=== PATIENT | male | born 1990 | race Caucasian/White ===

== ENCOUNTER 2021-06-01 22:30 | Inpatient (IN) | payer SELFPAY ==
[2021-06-02 02:20] VITALS: BMI 35.7
[2021-06-02] MEDS ORDERED: Ondansetron ODT 4 MG TAB PO PRN (02:25)
[2021-06-02] MEDS ORDERED: Ondansetron PF 4 MG/2 ML Vial IVP PRN (02:25)
[2021-06-02] MEDS ORDERED: Sodium Chloride 0.9% 1,000 ML IV SCH (03:30)
[2021-06-02 05:50] LABS: Hemoglobin 13.6 g/dL (14.0-18.0); Mean Corpuscular HGB CONC 33.1 g/dL (32.0-36.0); Mean Corpuscular Hemoglobin 31.1 pg (27.0-31.0); Mean Platelet Volume 7.6 fL (7.4-10.4); Platelet Count 198 thou/uL (130-400); RBC Distribution Width 12.1 % (11.5-14.5); Red Blood Cell (RBC) Count 4.36 mill/uL (4.70-6.10); White Blood Cell (WBC) Count 9.9 thou/uL (4.8-10.8)
[2021-06-02] MEDS: metroNIDAZOLE 500 MG in Premix Bag 1 BAG IVPB SCH ×3 (06:00→20:22)
[2021-06-02] MEDS: Cefepime 2 GM in Sodium Chloride 0.9% 100 ML IVPB SCH ×2 (06:00→16:39)
[2021-06-02] MEDS: HYDROcodone/Acetaminophen 5/325 mg Tablet PO PRN ×2 (06:06→22:13)
[2021-06-02 06:22] LABS: Band 21 % (5-11); Eosinophils 1 % (0-10); Lymphocytes 20 % (21-51); MDiff Complete? YES; Monocytes 6 % (0-10); Neutrophil 52 % (42-75)
[2021-06-02] MEDS: Acetaminophen 325 MG TAB PO PRN ×2 (07:32→20:16)
[2021-06-02] MEDS: Enoxaparin Sodium 40 MG/0.4 ML SYRINGE SC SCH (07:33)
[2021-06-02] MEDS ORDERED: diphenhydrAMINE 25 MG CAP PO SCH (09:00)
[2021-06-02] MEDS: Pantoprazole 40 MG VIAL IVP SCH ×2 (09:14→20:16)
[2021-06-02] MEDS: Dextrose 5 % And 0.9 % NaCl 1,000 ML IV SCH ×2 (10:30→22:15)
[2021-06-02 14:38] LABS: SARS-CoV-2 PCR by NAA Not Detected (NotDetected)
[2021-06-03] MEDS: Cefepime 2 GM in Sodium Chloride 0.9% 100 ML IVPB SCH (04:16)
[2021-06-03] MEDS: metroNIDAZOLE 500 MG in Premix Bag 1 BAG IVPB SCH (05:18)
[2021-06-03] MEDS: Enoxaparin Sodium 40 MG/0.4 ML SYRINGE SC SCH (08:36)
[2021-06-03] MEDS: Pantoprazole 40 MG VIAL IVP SCH (08:36)
[2021-06-03] MEDS: Dextrose 5 % And 0.9 % NaCl 1,000 ML IV SCH ×2 (08:36→16:52)
[2021-06-03] MEDS ORDERED: PROPOFOL 200 MG/20 ML VIAL ONE (10:55)
[2021-06-03 15:53] VITALS: BP 117/66; TEMP 98.8
== END 2021-06-03 16:25 | disposition home or self-care (01) | DRG 872 ==
LOC: OBSVTOIN 22:30 → SURG A 22:30
PROVIDERS: ADMIT Student in an Organized Health Care Education/Training Program; ATTEND Internal Medicine
PROC: 0DB98ZX Excision of Duodenum, Via Natural or Artificial Opening Endoscopic, Diagnostic (ICD-10-PCS; principal; 2021-06-03)
PROC: 0DB68ZX Excision of Stomach, Via Natural or Artificial Opening Endoscopic, Diagnostic (ICD-10-PCS; 2021-06-03)
DX: A41.89 Other specified sepsis (principal); K29.00 Acute gastritis without bleeding; I10 Essential (primary) hypertension; K26.9 Duodenal ulcer, unspecified as acute or chronic, without hemorrhage or perforation; E27.8 Other specified disorders of adrenal gland; A08.4 Viral intestinal infection, unspecified; F41.9 Anxiety disorder, unspecified; Z20.822 Contact with and (suspected) exposure to COVID-19; Z88.0 Allergy status to penicillin; Z87.11 Personal history of peptic ulcer disease
CPT/HCPCS: 36415; 36416; 87804; 88305; 88342; C9113; J0692; J1650; J2704; J3490; Q0163; U0003; U0005

== ENCOUNTER 2023-09-26 09:09 | Emergency (ER) | payer BC ==
[2023-09-26] MEDS ORDERED: Pantoprazole 40 MG VIAL ONE (09:49)
[2023-09-26] MEDS ORDERED: Ketorolac Tromethamine 30 MG/ML VIAL ONE (09:49)
[2023-09-26] MEDS ORDERED: Ondansetron PF 4 MG/2 ML Vial ONE (09:49)
[2023-09-26 09:52] LABS: #Basophils 0.1 thou/uL (0.0-0.2); #Eosinphils 0.2 thou/uL (0.0-0.7); #Monocytes 0.5 thou/uL (0.11-0.59); #Neutrophils 4.6 thou/uL (1.40-6.50); %Basophils 0.6 % (0.0-1.0); %Eosinophils 2.6 % (0.0-10.0); %Lymphocytes 33.1 % (21.0-51.0); %Neutrophils 57.5 % (42.0-75.0); Hematocrit 44.2 % (42.0-52.0); Mean Corpuscular HGB CONC 33.9 g/dL (32.0-36.0); Mean Corpuscular Hemoglobin 30.7 pg (27.0-31.0); Mean Corpuscular Volume 90.6 fl (78.0-98.0); Platelet Count 252 10x3/uL (130-400); RBC Distribution Width 13.2 % (11.5-14.5); Red Blood Cell (RBC) Count 4.88 mill/uL (4.70-6.10)
[2023-09-26 10:20] LABS: ALT (SGPT) 36 U/L (8-55); AST (SGOT) 22 U/L (5-34); Albumin 4.6 g/dL (3.5-5.0); Alkaline Phosphatase 80 U/L (40-110); Anion Gap 9 mmol/L (10-20); BUN (Urea Nitrogen) 14 mg/dL (8.9-20.6); Bilirubin, Total 0.5 mg/dL (0.2-1.2); Calc. Creatinine Clearance 0 mL/min (70-130); Calcium 9.4 mg/dL (7.8-10.44); Carbon Dioxide 28 mmol/L (22-29); Chloride 104 mmol/L (98-107); Estimated GFR 104; Globulin 2.5 g/dL (2.4-3.5); Glucose 89 mg/dL (70-105); Lipase 12 U/L (8-78); Potassium 3.9 mmol/L (3.5-5.1); Protein, Total 7.1 g/dL (6.0-8.3); Sodium 137 mmol/L (136-145)
[2023-09-26 10:24] LABS: Troponin I Less than 0.010 ng/mL (< 0.028)
== END 2023-09-26 10:46 | disposition home or self-care (01) ==
LOC: ERS 09:09
DX: M54.6 Pain in thoracic spine (principal); I10 Essential (primary) hypertension
CPT/HCPCS: 71045; 71275; 80053; 83690; 84484; 85025; 93005; 96374; 96375; C9113; J1885; J2405

== ENCOUNTER 2023-12-20 13:05 | Outpatient (CLI) | payer OTHER ==
[2023-12-20] MEDS ORDERED: Sterile Water 10 ML ONE (15:44)
[2023-12-20] MEDS ORDERED: Sincalide 5 MCG VIAL ONE (15:44)
[2023-12-20] MEDS ORDERED: Bacteriostatic Normal Saline 30 ML VIAL ONE (15:45)
== END 2023-12-20 13:06 | disposition home or self-care (01) ==
LOC: NM 13:05
PROVIDERS: ATTEND Physician Assistant Medical
DX: R10.11 Right upper quadrant pain (principal); K29.70 Gastritis, unspecified, without bleeding; B96.81 Helicobacter pylori [H. pylori] as the cause of diseases classified elsewhere; Z87.19 Personal history of other diseases of the digestive system
CPT/HCPCS: 78227; A9537; J2805

== ENCOUNTER 2024-01-04 10:00 | Day surgery (SDC) | payer OTHER ==
[2023-12-30 14:14] VITALS: BMI 41.5
[2024-01-04] MEDS ORDERED: Lidocaine 1% PF 5 ML VIAL ONE (11:06)
[2024-01-04] MEDS ORDERED: PROPOFOL 20 ML ONE ×2 (11:06)
[2024-01-04] MEDS ORDERED: Rocuronium Bromide 10 MG/ML (10ML VIAL) ONE (11:06)
[2024-01-04] MEDS ORDERED: fentaNYL PF 100 MCG/2 ML SYRINGE ONE ×2 (11:06→12:41)
[2024-01-04] MEDS ORDERED: Indocyanine Green 25 MG/10 ML VIAL ONE (11:17)
[2024-01-04] MEDS ORDERED: EPINEPHrine 1 MG/ML VIAL ONE (11:17)
[2024-01-04] MEDS ORDERED: Bupivacaine 0.25% HCL 30 ML VIAL ONE (11:18)
[2024-01-04] MEDS ORDERED: CEFAZOLIN 2 GM VIAL ONE (11:44)
[2024-01-04] MEDS ORDERED: Sodium Chloride 0.9% 100 ML ONE (11:44)
[2024-01-04] MEDS ORDERED: Midazolam HCl 2 mg/2 ml Vial ONE (11:55)
[2024-01-04] MEDS ORDERED: Dexamethasone 4 mg/ml Vial ONE (12:07)
[2024-01-04] MEDS ORDERED: Ondansetron PF 4 MG/2 ML Vial ONE (12:35)
[2024-01-04] MEDS ORDERED: Ketorolac Tromethamine 30 MG (1 mL) VIAL ONE (12:35)
[2024-01-04] MEDS ORDERED: SUGAMMADEX SODIUM 200 MG/2 ML VIAL ONE ×2 (12:36→12:55)
[2024-01-04] MEDS ORDERED: fentaNYL 50 mcg/mL 1 mL Vial ONE ×3 (13:07→13:26)
[2024-01-04] MEDS ORDERED: Meperidine HCl/PF 25 MG (1 mL) VIAL ONE (13:26)
== END 2024-01-04 16:00 | disposition home or self-care (01) ==
LOC: SDC 10:00
PROVIDERS: ATTEND Surgery
PROC: 0FT44ZZ Resection of Gallbladder, Percutaneous Endoscopic Approach (ICD-10-PCS; principal; 2024-01-04)
DX: K81.1 Chronic cholecystitis (principal); K82.8 Other specified diseases of gallbladder; I10 Essential (primary) hypertension; F90.9 Attention-deficit hyperactivity disorder, unspecified type; F41.9 Anxiety disorder, unspecified; Z88.0 Allergy status to penicillin; Z79.899 Other long term (current) drug therapy
CPT/HCPCS: 88304; C1776; J0171; J0665; J1100; J1885; J2175; J2250; J2405; J2704; J3010; J3490